=== PATIENT | female | born 1980 | race Caucasian/White ===

== ENCOUNTER 2018-09-07 00:10 | Emergency (ER) | payer MEDICAID ==
[~2018-09-07] VITALS: Ht 152.4 cm; Wt 98.6 kg
[~2018-09-07 00:10] MED LIST: HYDR-4011 PO; IBUP-1542 PO; LOPE2CAP PO; NAPR-985 PO; SIME80TA PO
[2018-09-07 00:15] VITALS: Ht 152.4 cm; Wt 98.6 kg
[2018-09-07] MEDS ORDERED: KETOROLAC 15 MG INJ IV STA ×2 (05:10→07:42)
[2018-09-07] MEDS ORDERED: ONDANSETRON 4 MG INJ IV STA (05:10)
[2018-09-07] MEDS ORDERED: SOD CHLORIDE 0.9% 1,000 ML IV STA (05:10)
[2018-09-07] MEDS ORDERED: IOHEXOL 300MG/ML 150 ML BTL ONE (06:46)
[2018-09-07] MEDS ORDERED: SOD CHLORIDE 0.9% 100 ML ONE (06:46)
--- NOTE | 2018-09-07 08:09 | ERD ---
ER Documentation Chief Complaint Chief Complaint right upper abd pain radiating to back x 1 month, getting worse HPI This is a very pleasant 37-year-old female presents to the emergency department complaining of right upper quadrant abdominal pain that radiates to her back. She indicates that this has been intermittent for 1 month. Several hours prior to arrival she states the pain significantly worsened. She stated the pain b zane to radiate to her right lower quadrant. She stated the pain was 10 out of 10 in intensity. There is no alleviating factors. She stated the pain was exacerbated when she would eat. She denied any hemoptysis hematemesis or melanotic stools however she did state she was experiencing nausea. The pain was a sharp shooting pain. She denied any frequency urgency or dysuria. She denies any recent travel or prolonged immobilization no shortness of breath at rest or exertion. She denies any chest pain. ROS All systems reviewed and are negative except as per history of present illness. Medications Home Meds Discontinued Scripts Loperamide Hcl* (Imodium*) 2 Mg Capsule, 2 MG PO Q6H PRN for DIARRHEA for 7 Days, CAP MAX 16 mg/day Prov:ELLIS ULLOA PA-C 07/27/16 Simethicone* (Anti-Gas/80*) 80 Mg Tab.chew, 80 MG PO Q6H PRN for DISTENSION/GAS/BLOATING for 7 Days, TAB.CHEW Prov:ELLIS ULLOA PA-C 07/27/16 Hydrocodone/Acetaminophen ([place] 5-325 Tablet) 1 Each Tablet, 1 TAB PO Q6H PRN for PAIN, #7 TAB Prov:ELLIS ULLOA PA-C 07/27/16 Naproxen* (Naprosyn*) 500 Mg Tablet, 500 MG PO BID PRN for PAIN AND/OR INFLAMMATION, #30 TAB Prov:ELLIS ULLOA PA-C 07/27/16 Ibuprofen* (Motrin*) 600 Mg Tab, 600 MG PO Q6 for PAIN AND OR ELEVATED TEMP, #30 Prov:YESSI ECKERT NP 02/01/15 Allergies Allergies: Coded Allergies: morphine (Verified Allergy, Unknown, sob, 09/07/18) PMhx/Soc History of Surgery: No Anesthesia Reaction: No Hx Neurological Disorder: No Hx Respiratory Disorders: No Hx Cardiac Disorders: No Hx Psychiatric Problems: No Hx Miscellaneous Medical Probl: Yes (gestational DM) Hx Alcohol Use: No Hx Substance Use: No Hx Tobacco Use: No Smoking Status: Never smoker Physical Exam Vitals Vital Signs Date Temp Pulse Resp B/P (MAP) Pulse Ox O2 O2 Flow FiO2 Time Delivery Rate 09/07/18 90 20 113/77 99 Room Air 06:20 (89) 09/07/18 98.0 103 18 143/91 99 00:15 (108) Physical Exam Constitutional:Well-developed. Well-nourished. HEENT:Normocephalic. Atraumatic.Pupils were equal round reactive to light. Moist mucous membranes.No tonsillar exudates. Neck: No nuchal rigidity. No lymphadenopathy. No posterior cervical spine tenderness or step-offs. Respiratory: Not using accessory muscles of respiration.Lungs were clear to auscultation bilaterally. No rhonchi. No rales. No wheezing. Cardiovascular: Regular rate regular rhythm.No murmurs. No rubs were appreciated.S1, S2 normal. Distal pulses are palpable 2+ bilaterally. GI: Abdomen was soft. Right upper quadrant tenderness with negative Mcgowan sign. Tenderness in the right lower quadrant nonspecific over McBurney's point. Psoas sign negative. Obturator sign negative.. Non Distended. No pulsatile abdominal masses or bruits. No rebound. No guarding. Bowel sounds were present and normal. Muscle skeletal: Full range of motion of both the upper and lower extremities bilaterally.Normal muscle tone.No assymetrical calf tenderness or swelling. Skin: No petechia, no purpura. No lesions on the palms or the soles of the feet. No maculopapular rash. NEURO: Patient was alert, awake, orientated x3.No facial droop. Gait observed and normal with no ataxia.Speech had regular rate and rhythm. No focal neurological deficits. Result Diagram: 09/07/1852909/07/1830 Results 24 hrs Laboratory Tests Test 09/07/18 05:30 09/07/18 05:36 White Blood Count 7.5 10^3/ul Red Blood Count 4.74 10^6/ul Hemoglobin 14.0 g/dl Hematocrit 41.9 % Mean Corpuscular Volume 88.4 fl Mean Corpuscular Hemoglobin 29.5 pg Mean Corpuscular Hemoglobin Concent 33.4 g/dl Red Cell Distribution Width 13.2 % Platelet Count 207 10^3/UL Mean Platelet Volume 11.0 fl Immature Granulocytes % 0.300 % Neutrophils % 56.0 % Lymphocytes % 31.9 % Monocytes % 10.0 % Eosinophils % 1.1 % Basophils % 0.7 % Nucleated Red Blood Cells % 0.0 /100WBC Immature Granulocytes # 0.020 10^3/ul Neutrophils # 4.2 10^3/ul Lymphocytes # 2.4 10^3/ul Monocytes # 0.8 10^3/ul Eosinophils # 0.1 10^3/ul Basophils # 0.1 10^3/ul Nucleated Red Blood Cells # 0.0 10^3/ul Urine Color YELLOW Urine Clarity SLIGHTLY CLOUDY Urine pH 5.0 Urine Specific [place] 1.026 Urine Ketones NEGATIVE mg/dL Urine Nitrite POSITIVE mg/dL Urine Bilirubin NEGATIVE mg/dL Urine Urobilinogen NEGATIVE mg/dL Urine Leukocyte Esterase TRACE Coral/ul Urine Microscopic RBC 4 /HPF Urine Microscopic WBC 15 /HPF Urine Squamous Epithelial Cells FEW /HPF Urine Bacteria MANY /HPF Urine Mucus MODERATE /HPF Urine Hemoglobin NEGATIVE mg/dL Urine Glucose NEGATIVE mg/dL Urine Total Protein NEGATIVE mg/dl Sodium Level 141 mmol/L Potassium Level 3.9 mmol/L Chloride Level 103 mmol/L Carbon Dioxide Level 27 mmol/L Anion Gap 11 Blood Urea Nitrogen 16 mg/dl Creatinine 0.54 mg/dl Est Glomerular Filtrat Rate mL/min > 60 mL/min Glucose Level 133 mg/dl Calcium Level 9.6 mg/dl Total Bilirubin 0.2 mg/dl Direct Bilirubin 0.00 mg/dl Indirect Bilirubin 0.2 mg/dl Aspartate Amino Transf (AST/SGOT) 40 IU/L Alanine Aminotransferase (ALT/SGPT) 73 IU/L Alkaline Phosphatase 68 IU/L Total Protein 7.7 g/dl Albumin 4.3 g/dl Globulin 3.40 g/dl Albumin/Globulin Ratio 1.26 Lipase 126 U/L POC Beta HCG, Qualitative NEGATIVE Current Medications Medications Dose Sig/Vinicius Start Time Status Last (Trade) Ordered Route PRN Stop Time Admin Dose Reason Admin Sodium 1,000 ml @ Q1H STAT 09/07/18 DC 09/07/18 Chloride 1,000 mls/hr IV 05:10 05:50 09/07/18 06:09 Ondansetron 4 mg ONCE STAT 09/07/18 DC 09/07/18 HCl (Zofran IV 05:10 05:50 Inj) 09/07/18 05:12 Ketorolac 15 mg ONCE STAT 09/07/18 DC 09/07/18 Tromethamine IV 05:10 05:50 (Toradol) 09/07/18 05:12 IV Flush 10 ml STK-MED 09/07/18 DC 09/07/18 (NS 10 ml) ONCE .ROUTE 06:46 07:06 09/07/18 06:47 Sodium 100 ml @ ud STK-MED 09/07/18 DC 09/07/18 Chloride ONCE .ROUTE 06:46 07:06 09/07/18 06:47 Iohexol 150 ml STK-MED 09/07/18 DC 09/07/18 (Omnipaque ONCE .ROUTE 06:46 07:06 300mg/ ml) 09/07/18 06:47 Ketorolac 15 mg ONCE STAT 09/07/18 DC Tromethamine IV 07:42 (Toradol) 09/07/18 07:43 Procedures/MDM This patient presented to the emergency department with abdominal pain and was seen and evaluated by myself. My differential diagnosis included but was not limited to abdominal aortic aneurysm, appendicitis, pancreatitis, perforated peptic ulcer, perforated viscus, Boerhaaves syndrome or visceral pain such as diverticulitis, DKA, esophagitis, hepatitis or bowel obstruction. The patient was placed on a cardiac nurse, continuous pulse oximetry, and IV access was established by nursing staff. The patient was given intravenous Toradol. She was also given IV fluids. I obtained an ultrasound of the patient's gallbladder which was found to be normal. This was reviewed by myself the radiologist. I reevaluated the patient and her pain had returned. The pain was localized to the right lower quadrant and therefore did feel is necessary to obtain a CT scan of the abdomen. There is no evidence of appendicitis. This was reviewed by the radiologist and indicated the following: The kidneys are normal in size without renal calculi bilaterally. In the posterior mid right kidney is a tiny 3 mm low density too small to characterize but is likely a cyst. No other initial masses bilaterally. There is moderate right hydronephrosis and hydroureter which extends to the level of the urinary bladder without demonstration of a calcified calculus. The recently passed stone is suspected. Recommend clinical correlation and consideration of follow-up CT urogram if clinically indicated. No evidence of left obstructive uropathy. Distended urinary bladder otherwise unremarkable. Anteverted anteflexed uterus. No adnexal masses. No evidence of intra-abdominal free air, free fluid, abscesses or lymphad enopathy. Stomach, small bowel, large bowel and appendix unremarkable. Diffuse hepatic fatty infiltration. No focal hepatic lesions. Spleen pancreas adrenal glands and gallbladder are unremarkable. No evidence of biliary ductal dilation. Aorta unremarkable. Abdominal pelvic wall unremarkable. Mild dependent subsegmental atelectasis. No evidence of acute osseous findings are osteoblastic/osteolytic lesions. Upon reviewing the patient's urinalysis she had pyuria with 15 white blood cells. There is positive nitrates and trace leukocytes. The patient states she was not complaining of specific frequency urgency or dysuria. I indicated to the patient clinically did not have an exact etiology into her symptoms but this could be the result of an early acute cystitis or possibly recently passed calculus. She did state she felt comfortable being discharged home with anti- inflammatories and a short course of antibiotics which will be Keflex to treat a urinary tract infection and urine culture was obtained. The patient was discharged home in fair condition. They were instructed to return to the emergency department at any time if there was any worsening of their condition. The patient stated they would follow up with their PCP in the next 24-48 hours to initiate a suitable medication regimen under the care of their PCP as well as to allow their PCP to monitor any drug reactions. The patient was discharged home with prescriptions after they gave informed consent to the new medication. They were also fully informed by myself on the adverse effects and adverse drug interactions in order to provide adequate safeguards to prevent possible adverse reactions to medications. Departure Diagnosis: Primary Impression: Abdominal pain Abdominal location: right lower quadrant Qualified Codes: R10.31 - Right lower quadrant pain Additional Impression: Urinary tract infection Urinary tract infection type: acute cystitis Hematuria presence: without hematuria Qualified Codes: N30.00 - Acute cystitis without hematuria Condition: Fair WINSTON CALLE MD Sep 07, 2018 08:09
[2018-09-07] MEDS ORDERED: CEPH-443 PO (08:10)
[2018-09-07] MEDS ORDERED: IBUP800T48 PO (08:10)
[2018-09-07 08:31] VITALS: BP 118/76; PULSE 96; RESP 19
== END 2018-09-07 08:32 | disposition home or self-care (01) ==
LOC: E/R 00:10
DX: N30.00 Acute cystitis without hematuria (principal)
CPT/HCPCS: 36415; 74177; 76705; 80053; 81001; 81025; 83690; 85025; 96374; 96375; J1885; J2405; J7030; Q9967; Z7502; Z7610

== ENCOUNTER 2019-02-16 22:38 | Emergency (ER) | payer MEDICAID ==
[~2019-02-16] VITALS: Ht 152.4 cm; Wt 98.2 kg
[~2019-02-16 22:38] MED LIST changes: +CEPH-443 PO; -HYDR-4011 PO; -IBUP-1542 PO; +IBUP800T48 PO; -LOPE2CAP PO; -NAPR-985 PO; -SIME80TA PO
[2019-02-16 22:40] VITALS: Ht 152.4 cm; Wt 98.2 kg
--- NOTE | 2019-02-17 00:56 | ERD ---
ER Documentation Chief Complaint Chief Complaint sent by OB today x further eval of gestational DM HPI 38-year-old female G5, P4 no reported past medical history, recent history of gestational diabetes and hypertension during for , currently 8 weeks by ultrasound who presents with complaint of headache, nausea and vomiting over the past 2 days. She otherwise denies fevers, chills, shortness of breath, chest pain, nausea, vomiting, abdominal pain, pelvic pain, vaginal bleeding or discharge. She is recently treated for UTI with antibiotics, currently denies any urinary symptoms. Seen in clinic on January 24 and flagged with blood glucose level of 276. Saw her [employer]CHNICIAN Dr. Carreon 2 weeks ago and had ultrasound which she reports as normal. She presents to ED as she has these concerning symptoms and is concerned about having elevated blood sugars given her history of gestational diabetes and previous . Patient states that her current #4 she had elevated blood pressure as well as blood sugars and was placed on metformin medication. ROS All systems reviewed and are negative except as per history of present illness. Medications Home Meds Active Scripts Cephalexin* (Keflex*) 500 Mg Capsule, 500 MG PO QID for 5 Days, CAP Prov:WINSTON CALLE MD 09/07/18 Ibuprofen* (Motrin*) 800 Mg Tab, 800 MG PO Q6H PRN for PAIN AND OR ELEVATED TEMP, #30 TAB Prov:WINSTON CALLE MD 09/07/18 Allergies Allergies: Coded Allergies: morphine (Verified Allergy, Unknown, sob, 09/07/18) PMhx/Soc Medical and Surgical Hx: pt denies Surgical Hx History of Surgery: No Anesthesia Reaction: No Hx Neurological Disorder: No Hx Respiratory Disorders: No Hx Cardiac Disorders: No Hx Psychiatric Problems: No Hx Miscellaneous Medical Probl: Yes (gestational DM) Hx Alcohol Use: No Hx Substance Use: No Hx Tobacco Use: No Smoking Status: Never smoker FmHx Family History: No diabetes, No coronary disease, No other Physical Exam Vitals Vital Signs Date Temp Pulse Resp B/P (MAP) Pulse Ox O2 O2 Flow FiO2 Time Delivery Rate 02/16/19 99.4 91 18 141/68 98 22:40 (92) Physical Exam I have reviewed the triage vital signs. Const: Well nourished, well developed, appears stated age Eyes: PERRL, no conjunctival injection HENT: NCAT, Neck supple without meningismus CV: RRR, Warm, well-perfused extremities RESP: CTAB, Unlabored respiratory effort GI: soft, non-tender, non-distended, no masses MSK: No gross deformities appreciated Skin: Warm, dry. No rashes Neuro: grossly non focal Psych: Appropriate mood and affect. Result Diagram: 02/17/19 0042 02/17/19 0041 Results 24 hrs Laboratory Tests Test 02/17/19 00:41 02/17/19 00:42 02/17/19 00:54 02/17/19 01:02 Sodium Level 141 mmol/L Potassium Level 4.1 mmol/L Chloride Level 106 mmol/L Carbon Dioxide 24 mmol/L Level Anion Gap 11 Blood Urea 14 mg/dl Nitrogen Creatinine 0.65 mg/dl Est Glomerular > 60 mL/min Filtrat Rate mL/min Glucose Level 120 mg/dl Lactic Acid Level 1.2 mmol/L Calcium Level 9.4 mg/dl Total Bilirubin Pending Direct Bilirubin Pending Indirect Bilirubin Pending Aspartate Amino 32 IU/L Transf (AST/SGOT) Alanine 42 IU/L Aminotransferase ( ALT/SGPT) Alkaline 71 IU/L Phosphatase Total Protein 7.3 g/dl Albumin 4.1 g/dl Globulin 3.20 g/dl Albumin/Globulin 1.28 Ratio White Blood Count 8.9 10^3/ul Red Blood Count 4.62 10^6/ul Hemoglobin 13.5 g/dl Hematocrit 41.4 % Mean Corpuscular 89.6 fl Volume Mean Corpuscular 29.2 pg Hemoglobin Mean Corpuscular 32.6 g/dl Hemoglobin Concent Red Cell 14.0 % Distribution Width Platelet Count 213 10^3/UL Mean Platelet 11.2 fl Volume Immature 0.200 % Granulocytes % Neutrophils % 63.1 % Lymphocytes % 28.0 % Monocytes % 7.2 % Eosinophils % 0.8 % Basophils % 0.7 % Nucleated Red 0.0 /100WBC Blood Cells % Immature 0.020 10^3/ul Granulocytes # Neutrophils # 5.6 10^3/ul Lymphocytes # 2.5 10^3/ul Monocytes # 0.6 10^3/ul Eosinophils # 0.1 10^3/ul Basophils # 0.1 10^3/ul Nucleated Red 0.0 10^3/ul Blood Cells # Urine Color YELLOW Urine Clarity SLIGHTLY CLOUDY Urine pH 8.0 Urine Specific 1.020 [place] Urine Ketones NEGATIVE mg/dL Urine Nitrite NEGATIVE mg/dL Urine Bilirubin NEGATIVE mg/dL Urine Urobilinogen 1+ mg/dL Urine Leukocyte TRACE [place]/ul Esterase Urine Microscopic 0 /HPF RBC Urine Microscopic 2 /HPF WBC Urine Squamous FEW /HPF Epithelial Cells Urine Bacteria FEW /HPF Urine Hemoglobin NEGATIVE mg/dL Urine Glucose NEGATIVE mg/dL Urine Total NEGATIVE mg/dl Protein POC Venous Lactate 1.2 mmol/L Bedside Glucose 111 mg/dL Procedures/MDM 38-year-old female G5, P4 currently 8 weeks who presents with complaints of headache, nausea and vomiting. Patient previous history of gestational diabetes and is concerned she has elevated sugars. I have low suspicion for any acute process and warranting further emergent care or work-up. ED course: [id number] blood glucose 111, blood glucose level 120, all the rest of her labs unremarkable We will discharge with strict return precautions, patient advised to follow-up with her [employer] TECHNICIAN for further care Patient advised to take Tylenol for her symptoms, patient is she has Zofran at home and advised to take close consultation with her [employer] TECHNICIAN DISPOSITION PLAN: We discussed follow up with the patient's primary care doctor within 24 to 48 hours. Patient counseled regarding my diagnostic impression and care plan. Prior to discharge all questions answered. Pt agrees with treatment plan and understands strict return precautions. Precautionary instructions provided including instructions to return to the ER if not improving or for any worsening or changing symptoms or concerns. Disclaimer: Inadvertent spelling and grammatical errors are likely due to EHR/dictation software use and do not reflect on the overall quality of patient care. Also, please note that the electronic time recorded on this note does not necessarily reflect the actual time of the patient encounter. Departure Diagnosis: Primary Impression: Multiple complaints Condition: Stable Patient Instructions: What Is Gestational Diabetes?, Monitoring Your Blood Sugar During , Understanding Blood Sugar During Referrals: COMMUNITY CLINICS YOU HAVE RECEIVED A MEDICAL SCREENING EXAM AND THE RESULTS INDICATE THAT YOU DO NOT HAVE A CONDITION THAT REQUIRES URGENT TREATMENT IN THE EMERGENCY DEPARTMENT. FURTHER EVALUATION AND TREATMENT OF YOUR CONDITION CAN WAIT UNTIL YOU ARE SEEN IN YOUR DOCTORS OFFICE WITHIN THE NEXT 1-2 DAYS. IT IS YOUR RESPONSIBILITY TO MAKE AN APPOINTMENT FOR FOLOW-UP CARE. IF YOU HAVE A PRIMARY DOCTOR --you should call your primary doctor and schedule an appointment IF YOU DO NOT HAVE A PRIMARY DOCTOR YOU CAN CALL OUR PHYSICIAN REFERRAL HOTLINE AT IF YOU CAN NOT AFFORD TO SEE A PHYSICIAN YOU CAN CHOSE FROM THE FOLLOWING [facility] [address] [facility] [address] [facility] [facility] [address] [facility] [address] [facility]. [facility] [address] [facility]. [facility]. [address] Additional Instructions: Call your primary care doctor TOMORROW for an appointment during the next 2-3 days.See the doctor sooner or return here if your condition worsens before your appointment time. ERIC ALVES PA-C Feb 17, 2019 00:52
[2019-02-17 01:44] VITALS: BP 112/68; PULSE 79; RESP 16
== END 2019-02-17 01:43 | disposition home or self-care (01) ==
LOC: FTE 22:38
DX: R51 Headache (principal); R11.2 Nausea with vomiting, unspecified
CPT/HCPCS: 36415; 80053; 81001; 82962; 83605; 85025; Z7502; 99283

== ENCOUNTER 2019-04-17 16:45 | Emergency (ER) | payer MEDICAID ==
[~2019-04-17] VITALS: Ht 160 cm; Wt 90.0 kg
[~2019-04-17 16:45] MED LIST changes: +ACET325T33 PO; +ACET500C5 PO; +CALC600T5 PO; +FAMO-96 PO; +FERR240T9 PO; +GLYB2.5T2 PO; +METF500T24 PO; +METF850T13 PO; +NITR100C7 PO; +PREN-39 PO; +PRO20 PO
[2019-04-17 16:52] VITALS: Ht 160 cm; Wt 90.0 kg
[2019-04-17] MEDS ORDERED: SOD CHLORIDE 0.9% 1,000 ML IV STA (17:19)
[2019-04-17] MEDS ORDERED: ACETAMINOPHEN 325 MG TAB PO ONE (17:30)
[2019-04-17 19:19] VITALS: BP 111/60; PULSE 75; RESP 18
== END 2019-04-17 19:27 | disposition home or self-care (01) ==
LOC: MERGE 16:45 → FTE 16:45
DX: O23.12 Infections of bladder in pregnancy, second trimester (principal); O10.012 Pre-existing essential hypertension complicating pregnancy, second trimester; R10.2 Pelvic and perineal pain; Z3A.16 16 weeks gestation of pregnancy; Z79.84 Long term (current) use of oral hypoglycemic drugs
CPT/HCPCS: 36415; 76705; 76805; 80053; 81001; 83690; 84702; 85025; 85610; 85730; J7030; Z7502; Z7610

== ENCOUNTER 2019-05-13 16:35 | Outpatient (CLI) | payer MEDICAID ==
[~2019-05-13] VITALS: Ht 152.4 cm; Wt 100.0 kg
[~2019-05-13 16:35] MED LIST changes: +CEPH500C PO; +INSU100C SQ; +NOVO3I SC; +NOVO7030 SC; +NPH,100I5 SQ; +NPH,100V SC
[2019-05-13 16:43] VITALS: Ht 152.4 cm; Wt 100.0 kg
[2019-05-13] MEDS ORDERED: LACTATED RINGER'S 1,000 ML IV SCH (18:00)
== END 2019-05-13 20:05 | disposition home or self-care (01) ==
LOC: OBT 16:35 → L-D 16:37 → OBT 20:05
PROVIDERS: ATTEND Obstetrics & Gynecology
DX: O23.42 Unspecified infection of urinary tract in pregnancy, second trimester (principal); O24.419 Gestational diabetes mellitus in pregnancy, unspecified control; O09.512 Supervision of elderly primigravida, second trimester; Z3A.19 19 weeks gestation of pregnancy
CPT/HCPCS: 76817; 80053; 81001; 85025; J7120; 87086

== ENCOUNTER 2019-06-10 13:28 | Outpatient (CLI) | payer MEDICAID ==
[~2019-06-10] VITALS: Ht 152.4 cm; Wt 100.5 kg
[~2019-06-10 13:28] MED LIST changes: -ACET325T33 PO; -ACET500C5 PO; -CALC600T5 PO; -CEPH-443 PO; -FAMO-96 PO; -FERR240T9 PO; -GLYB2.5T2 PO; -IBUP800T48 PO; -METF500T24 PO; -METF850T13 PO; -NITR100C7 PO; -NPH,100I5 SQ; -PRO20 PO
[2019-06-10 13:40] VITALS: Ht 152.4 cm; Wt 100.5 kg
== END 2019-06-10 15:40 | disposition home or self-care (01) ==
LOC: OBT 13:28 → L-D 13:28 → OBT 15:40
PROVIDERS: ATTEND Obstetrics & Gynecology
DX: O62.9 Abnormality of forces of labor, unspecified (principal); O09.512 Supervision of elderly primigravida, second trimester; Z3A.23 23 weeks gestation of pregnancy
CPT/HCPCS: 76815; 76817; 81001; 82731; 84112; Z7500; G0463

== ENCOUNTER 2019-06-23 11:23 | Inpatient (IN) | payer MEDICAID ==
[~2019-06-23] VITALS: Ht 152.4 cm; Wt 100.5 kg
[2019-06-23 12:44] VITALS: BP 111/73; PULSE 123; RESP 20; Ht 152.4 cm; Wt 100.5 kg
[2019-06-23] MEDS ORDERED: ACETAMINOPHEN 650 MG SUPP PR PRN (13:00)
[2019-06-23] MEDS ORDERED: AL HYDROX/MG HYDROX/SIMETH 30 ML CUP PO PRN (13:00)
[2019-06-23] MEDS: LACTATED RINGER'S 1,000 ML IV SCH ×2 (14:10→22:08)
[2019-06-23] MEDS: CEFAZOLIN 2 GM/50 ML (PMX) 50 ML IVPB SCH ×2 (14:10→22:08)
[2019-06-23] MEDS ORDERED: GLUCOSE GEL 15 GRAM TUBE PO PRN ×2 (14:30)
[2019-06-23] MEDS ORDERED: GLUCAGON 1 MG INJ IM PRN (14:30)
[2019-06-23] MEDS ORDERED: DEXTROSE 50% 50 ML SYRINGE IV PRN ×2 (14:30)
[2019-06-23] MEDS ORDERED: GLUCOSE GEL 15 GRAM TUBE BUCCAL PRN (14:30)
[2019-06-23] MEDS ORDERED: HYDROCODONE/APAP (5/325) TAB PO ONE (16:00)
[2019-06-23] MEDS ORDERED: INSULIN LISPRO 100 UNIT/ML VIAL SC SCH ×2 (17:35)
[2019-06-23] MEDS: INSULIN ASPART [NOVOLOG] 3 ML PEN SC SCH (18:00)
[2019-06-23] MEDS: NPH, HUMAN INSULIN ISOPHANE 3ML VIAL SC SCH (20:11)
[2019-06-23] MEDS: ACETAMINOPHEN 325 MG TAB PO PRN (22:55)
[2019-06-24] MEDS ORDERED: HYDROCODONE/APAP (5/325) TAB PO PRN (02:30)
[2019-06-24] MEDS ORDERED: GENTAMICIN IV PER PHARMACY XX SCH (03:30)
[2019-06-24] MEDS: LACTATED RINGER'S 1,000 ML IV SCH ×3 (03:57→18:55)
[2019-06-24] MEDS: GENTAMICIN 100 MG/50 ML NS IVPB SCH ×3 (04:03→20:24)
[2019-06-24] MEDS: CEFAZOLIN 2 GM/50 ML (PMX) 50 ML IVPB SCH ×2 (06:03→13:51)
[2019-06-24] MEDS: HYDROCODONE/APAP (5/325) TAB PO PRN ×3 (06:03→20:24)
[2019-06-24] MEDS: FERROUS SULFATE (EC) 325 MG TAB PO SCH (08:22)
[2019-06-24] MEDS: PRENATAL VITAMIN PO SCH (08:22)
[2019-06-24] MEDS: DOCUSATE SODIUM 100 MG CAP PO SCH (08:22)
[2019-06-24] MEDS: NPH, HUMAN INSULIN ISOPHANE 3ML VIAL SC SCH ×2 (09:12→21:07)
[2019-06-24] MEDS: INSULIN ASPART [NOVOLOG] 3 ML PEN SC SCH ×2 (09:13→18:59)
[2019-06-24] MEDS: ACETAMINOPHEN 325 MG TAB PO PRN (11:34)
[2019-06-24] MEDS: SOD CHLORIDE 0.9% 1,000 ML IV SCH (21:04)
[2019-06-24] MEDS: CEFTRIAXONE 1 GM/50 ML (PMX) 50 ML IVPB SCH (21:05)
[2019-06-25] MEDS: ACETAMINOPHEN 325 MG TAB PO PRN ×2 (02:42→12:41)
[2019-06-25] MEDS: GENTAMICIN 100 MG/50 ML NS IVPB SCH ×3 (03:41→20:01)
[2019-06-25] MEDS: SOD CHLORIDE 0.9% 1,000 ML IV SCH ×3 (04:30→20:01)
[2019-06-25] MEDS: NPH, HUMAN INSULIN ISOPHANE 3ML VIAL SC SCH ×2 (09:04→20:49)
[2019-06-25] MEDS: INSULIN ASPART [NOVOLOG] 3 ML PEN SC SCH ×2 (09:06→18:15)
[2019-06-25] MEDS: DOCUSATE SODIUM 100 MG CAP PO SCH (09:07)
[2019-06-25] MEDS: PRENATAL VITAMIN PO SCH (09:07)
[2019-06-25] MEDS: FERROUS SULFATE (EC) 325 MG TAB PO SCH (09:07)
[2019-06-25] MEDS: CEFTRIAXONE 1 GM/50 ML (PMX) 50 ML IVPB SCH (20:53)
[2019-06-26] MEDS: TRIAMCINOLONE ACET 0.1% 15 GM CR TOP SCH ×2 (01:22→09:14)
[2019-06-26] MEDS: GENTAMICIN 100 MG/50 ML NS IVPB SCH (04:00)
[2019-06-26] MEDS: SOD CHLORIDE 0.9% 1,000 ML IV SCH (05:49)
[2019-06-26] MEDS: NPH, HUMAN INSULIN ISOPHANE 3ML VIAL SC SCH (08:42)
[2019-06-26] MEDS: DOCUSATE SODIUM 100 MG CAP PO SCH (08:48)
[2019-06-26] MEDS: FERROUS SULFATE (EC) 325 MG TAB PO SCH (08:48)
[2019-06-26] MEDS: PRENATAL VITAMIN PO SCH (08:48)
[2019-06-26] MEDS: INSULIN ASPART [NOVOLOG] 3 ML PEN SC SCH (08:48)
== END 2019-06-26 11:45 | disposition home or self-care (01) | DRG 832 ==
LOC: L-D 11:23 → PP1 12:05 → EDSTATUS 10-01 11:22
PROVIDERS: ADMIT Obstetrics & Gynecology; ATTEND Obstetrics & Gynecology
DX: O24.414 Gestational diabetes mellitus in pregnancy, insulin controlled (principal); O23.02 Infections of kidney in pregnancy, second trimester; O09.522 Supervision of elderly multigravida, second trimester; Z3A.25 25 weeks gestation of pregnancy
CPT/HCPCS: 80053; 80170; 81001; 82962; 83605; 85025; 87086; J0690; J0696; J1580; J1815; J7030; J7120